=== PATIENT | female | born 1980 | race Caucasian/White ===

== ENCOUNTER 2020-02-24 07:35 | Inpatient (IN) | payer MEDICAID ==
[~2020-02-24] VITALS: Ht 160 cm; Wt 65.3 kg
[~2020-02-24 07:35] MED LIST: LEVO75TA6 PO
[2020-02-24] MEDS ORDERED: HYDROmorphone HCL 2 MG/ML VL ONE (09:24)
[2020-02-24] MEDS ORDERED: MIDAZOLAM HCL 1MG/1ML-2 ML VIAL ONE (09:25)
[2020-02-24] MEDS ORDERED: fentaNYL CITRATE 100 MCG/2 ML VL ONE (09:25)
[2020-02-24] MEDS ORDERED: CIPROFLOXACIN 400MG/200ML 200 ML IV ONE (09:34)
[2020-02-24] MEDS ORDERED: ceFAZolin 1GM/50ML 50 ML IV ONE (09:40)
[2020-02-24] MEDS ORDERED: NEOSTIGMINE 1 MG/ML INJ (10mg/10ML VIAL) IV ONE (09:42)
[2020-02-24] MEDS ORDERED: GLYCOPYRROLATE 0.2 MG/ML 1ML VIAL IV ONE (09:42)
[2020-02-24] MEDS ORDERED: PHENYLEPHRINE HCL 10 MG/ML VL IV ONE (09:42)
[2020-02-24] MEDS ORDERED: DexAMETHasone SOD PHOS 10MG/1ML VIAL INJ IV ONE (09:42)
[2020-02-24] MEDS ORDERED: ONDANSETRON HCL 4 MG/2 ML VIAL ONE (10:25)
[2020-02-24] MEDS ORDERED: PROPOFOL 10 MG/ML 20 ML IV ONE (10:25)
[2020-02-24] MEDS ORDERED: ONDANSETRON HCL 4 MG/2 ML VIAL IV PRN (10:30)
[2020-02-24] MEDS ORDERED: LABETALOL HCL 5 MG/ML 4ML SYRINGE IV PRN (10:30)
[2020-02-24] MEDS ORDERED: KETOROLAC TROMETH 30 MG/ML 1ML VIAL IV ONE (10:30)
[2020-02-24] MEDS ORDERED: ePHEDrine SULFATE 50 MG/ML AMP IV PRN (10:30)
[2020-02-24] MEDS ORDERED: MORPHINE SULFATE 4 MG/ML SYR/VIAL IV PRN (10:30)
[2020-02-24] MEDS ORDERED: MIDAZOLAM HCL 1MG/1ML-2 ML VIAL IV PRN (10:30)
[2020-02-24] MEDS ORDERED: BUPIVACAINE 0.25% INJ 50ML VIAL ONE (10:50)
[2020-02-24] MEDS ORDERED: CONJ ESTROGENS 0.625MG/GM VAG CRM 30GM PV ONE (11:12)
[2020-02-24] MEDS ORDERED: METHYLENE BLUE 0.5% 5MG/ML 10ml AMP IV ONE (11:12)
[2020-02-24] MEDS ORDERED: DOXAPRAM HCL 20 MG/ML 20ML VIAL INJ IV ONE (12:18)
[2020-02-24] MEDS ORDERED: ACETAMINOPHEN IV 100 ML IV ONE (12:30)
[2020-02-24] MEDS ORDERED: MORPHINE SULF INJ 2 MG/ML SYRINGE 1ML IV PRN (12:30)
[2020-02-24] MEDS ORDERED: NITROGLYCERIN 0.4 MG SL TAB SL PRN (12:30)
[2020-02-24] MEDS: HYDROmorphone HCL 2 MG/ML VL IV PRN ×4 (13:39→23:13)
--- NOTE | 2020-02-24 14:25 | NUR ---
Admin from OR Admin from OR to med surg to 223A. Patient is AOx4. Velazquez in place draining to gravity. Incision clean, dry and intact. 2 L oxygen for comfort. Updated on POC. All questions answered. Safety measures in place, including bed locked and in lowest position and call light within reach. Will continue to monitor from changes.
[2020-02-24] MEDS: ONDANSETRON HCL 4 MG/2 ML VIAL IV PRN ×2 (14:47→18:48)
[2020-02-24] MEDS: ceFAZolin 1GM/50ML 50 ML IV SCH ×2 (14:48→21:40)
[2020-02-24] MEDS: KETOROLAC TROMETH 30 MG/ML 1ML VIAL IV PRN ×2 (14:48→21:40)
[2020-02-24 15:12] VITALS: BP 99/57
[2020-02-24 17:00] VITALS: BP 95/57
--- NOTE | 2020-02-24 19:23 | NUR ---
Opening Shift Note Assumed care of patient, awake and alert. No S/S of distress/SOB. Patient complains of pain, will medicate per MD orders. Instructed on POC and to call for assistance PRN, will continue to monitor for changes Q1hr and PRN. Safety precautions in place bed is in lowest position and locked, bed rails 2x.
[2020-02-24 22:00] VITALS: BP 93/60
[2020-02-25] MEDS: HYDROmorphone HCL 2 MG/ML VL IV PRN ×2 (04:36→08:25)
--- NOTE | 2020-02-25 04:50 | NUR ---
YOO DC'D PER MD ORDERS, YOO DC'D, TOTAL OUTPUT 2,000ML. PATIENT TOLERATED WELL. WILL CONTINUE TO MONITOR Q1 AND PRN.
[2020-02-25] MEDS: ONDANSETRON HCL 4 MG/2 ML VIAL IV PRN (04:59)
[2020-02-25 05:00] VITALS: BP 95/61
[2020-02-25] MEDS: ceFAZolin 1GM/50ML 50 ML IV SCH ×2 (07:09→14:35)
[2020-02-25 07:13] LABS: Basophils # (auto) 0 10 ^3/uL (0-0.2); Basophils % (auto) 0.1 % (0.0-2.0); Eosinophils # (auto) 0 10 ^3/uL (0-0.8); Eosinophils % (auto) 0.1 % (0.0-7.0); Hematocrit 32.7 % (36.0-46.0); Hemoglobin 11.2 g/dL (12.2-16.2); Lymphocytes % (auto) 10.1 % (10.0-50.0); Mean Corpuscular Hemoglobin 32.8 pg (28.0-32.0); Mean Corpuscular Hgb Conc. 34.2 g/dL (32.0-36.0); Mean Corpuscular Volume 95.9 fL (80.0-100.0); Monocytes # (auto) 0.6 10 ^3/uL (0-1.3); Neutrophils # (auto) 7.9 10 ^3/uL (1.6-8.6); Neutrophils % (auto) 83.7 % (37.0-80.0); Platelet Count (auto) 316 10^3/uL (140-450); Red Blood Cells 3.41 10^6/uL (4.0-5.20); Red Cell Distribution Width 12.7 % (11.8-14.3); White Blood Cell 9.4 10^3/uL (4.4-10.8)
[2020-02-25 07:19] LABS: BUN/Creatinine Ratio 13.6; Calcium 8.3 mg/dL (8.5-10.1); Potassium 4.2 mmol/L (3.5-5.1)
[2020-02-25 07:23] LABS: Bilirubin, Total 0.5 mg/dL (0.2-1.0); Total Protein 5.7 g/dL (6.4-8.2)
--- NOTE | 2020-02-25 07:49 | NUR ---
AT BEDSIDE DR RAYGOZA AT BEDSIDE REMOVING VAGINAL PACKING. NEW ORDERS RECEIVED. WILL CARRY OUT AND CONTINUE CARE.
--- NOTE | 2020-02-25 08:00 | NUR ---
OPENING SHIFT NOTE ASSUMED CARE OF PATIENT AWAKE AND ALERT. NO S/S OF DISTRESS NOTED. PATIENT UPDATED ON POC FOR THE DAY AND ALL QUESTIONS ANSWERED. BED IS IN LOWEST, LOCKED POSITION WITH SIDE RAILS UP X2 AND CALL LIGHT WITHIN REACH. WILL CONTINUE TO MONITOR Q1H AND PRN.
[2020-02-25] MEDS ORDERED: HYDROcodone-ACET 10/325MG TAB PO PRN (08:30)
[2020-02-25 09:00] VITALS: BP 100/62
[2020-02-25] MEDS ORDERED: HYDROmorphone HCL 2 MG/ML VL IV ONE (12:30)
[2020-02-25 13:00] VITALS: BP 97/58
[2020-02-25 17:00] VITALS: BP 100/65
--- NOTE | 2020-02-25 17:48 | NUR ---
Discharge instructions given as ordered. Encourage to follow up with PMD as instructed. All questions and concerns addressed. Patient verbalized understanding. IV removed with catheter intact, pressure dressing applied. Patient taken to vehicle via wheelchair with all personal belongings, accompanied by staff. No distress noted at time of departure.
[2020-02-25] MEDS ORDERED: DOCUSATE SOD 100 MG CAP PO SCH (22:00)
== END 2020-02-25 17:45 | disposition home or self-care (01) | DRG 519 ==
LOC: SUR 07:35 → OVERFLOW 07:36 → CENTRAL 14:40
PROVIDERS: ADMIT Specialist; ATTEND Specialist
PROC: 0UT9FZZ Resection of Uterus, Via Natural or Artificial Opening With Percutaneous Endoscopic Assistance (ICD-10-PCS; principal; 2020-02-24 09:46)
DX: D25.9 Leiomyoma of uterus, unspecified (principal); N80.9 Endometriosis, unspecified; N94.6 Dysmenorrhea, unspecified; N92.0 Excessive and frequent menstruation with regular cycle; E03.9 Hypothyroidism, unspecified; G89.29 Other chronic pain
CPT/HCPCS: 36415; 80053; 85025; 86850; 86900; 86901; G0378; J0131; J0690; J1100; J1885; J2250; J2405; J2704; J3490

== ENCOUNTER 2022-06-25 06:32 | Emergency (ER) | payer MEDICAID ==
[~2022-06-25] VITALS: Ht 160 cm; Wt 60.0 kg
[2022-06-25 07:23] LABS: Basophils # (auto) 0 10 ^3/uL (0-0.2); Basophils % (auto) 0.3 % (0.0-2.0); Eosinophils # (auto) 0 10 ^3/uL (0-0.8); Eosinophils % (auto) 0.2 % (0.0-7.0); Hematocrit 44.4 % (36.0-46.0); Hemoglobin 15.3 g/dL (12.2-16.2); Lymphocytes % (auto) 11.2 % (10.0-50.0); Mean Corpuscular Hemoglobin 32.5 pg (28.0-32.0); Mean Corpuscular Hgb Conc. 34.4 g/dL (32.0-36.0); Mean Corpuscular Volume 94.6 fL (80.0-100.0); Monocytes # (auto) 0.3 10 ^3/uL (0-1.3); Monocytes % (auto) 3.8 % (0.0-12.0); Neutrophils # (auto) 7.7 10 ^3/uL (1.6-8.6); Neutrophils % (auto) 84.5 % (37.0-80.0); Red Blood Cells 4.69 10^6/uL (4.0-5.20); Red Cell Distribution Width 13.9 % (11.8-14.3); White Blood Cell 9.1 10^3/uL (4.4-10.8)
[2022-06-25] MEDS ORDERED: SODIUM CHLORIDE 0.9% 1,000 ML IV ONE ×3 (07:30→07:45)
[2022-06-25] MEDS ORDERED: ONDANSETRON HCL 4 MG/2 ML VIAL IV ONE (07:30)
[2022-06-25 07:39] LABS: Albumin 4.6 g/dL (3.4-5.0); Calcium 9.9 mg/dL (8.5-10.1); Potassium 4.1 mmol/L (3.5-5.1)
[2022-06-25 07:40] LABS: BUN/Creatinine Ratio 20.5 (10.0-20.0)
[2022-06-25 07:43] LABS: Bilirubin, Total 1.1 mg/dL (0.2-1.0); Total Protein 8.5 g/dL (6.4-8.2)
[2022-06-25] MEDS ORDERED: PROMETHAZINE HCL 25 MG/ML 1ML IV ONE (07:45)
[2022-06-25 10:00] VITALS: BP 116/77
[2022-06-25] MEDS ORDERED: ONDA-144 PO (16:08)
== END 2022-06-25 11:38 | disposition home or self-care (01) ==
LOC: ER 06:32
DX: R11.2 Nausea with vomiting, unspecified (principal); Z90.710 Acquired absence of both cervix and uterus; Z88.1 Allergy status to other antibiotic agents; Z88.2 Allergy status to sulfonamides; Z88.8 Allergy status to other drugs, medicaments and biological substances
CPT/HCPCS: 36415; 80053; 82962; 83690; 85025; 96361; 96374; 96375; 99284; J2405; J2550; J7030